=== PATIENT | male | born 1985 | race Caucasian/White ===

== ENCOUNTER 2024-05-14 08:56 | Outpatient (CLI) | payer BC, SELFPAY ==
--- OUTSIDE RECORDS SUMMARY | 2024-05-14 09:24 | XMS_ITS | Clinical Summary ---
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 Role Phone Unavailable Primary Care Provider Unavailabl e Allergies No known active allergies Medications No known medications Active Problems Problem Noted Date Diagnosed Date AMBAR (obstructive sleep apnea) 11/06/2016 Physical exam, annual (Adult) 06/04/2016 Apnea 06/04/2016 Dupuytren contracture 06/04/2016 Tinea versicolor 06/04/2016 Family History Medical History Relation Name Comments No Known Problems Father No Known Problems Mother Relation Name Status Comments Father Alive Mother Alive Social History Tobacco Use Types Packs/Day Years Used Date Smoking Tobacco: Never Smokeless Tobacco: Never Tobacco Cessation:Counseling Given: No Alcohol Use Standard Drinks/Week Comments Yes 0 (1 standard drink = 0.6 oz pur e alcohol) Sexually Active Control Partners Comments Not Currently Sex and Gender Information Value Date Recorded Sex Assigned at Not on file Legal Sex Male 12:00 AM CDT Gender Identity Not on file Sexual Orientation Not on file Last Filed Vital Signs Vital Sign Reading Time Taken Comments Blood Pressure 104/72 11/06/2016 11:28 AM CDT Pulse 66 11/06/2016 11:28 AM CDT Temperature 36.6 C (97.9 F) 11/06/2016 11:28 AM CDT Respiratory Rate 20 11/06/2016 11:28 AM CDT Oxygen Saturation 96% 11/06/2016 11:28 AM CDT Inhaled Oxygen Concentration - - Weight 127 kg (280 lb) 11/06/2016 11:28 AM CDT Height 185.4 cm (6' 1 ) 11/06/2016 11:28 AM CDT Body Mass Index 36.94 11/06/2016 11:28 AM CDT Plan of Treatment Health Maintenance Due Date Last Done Comments Hepatitis C Virus (HCV) Screening 1984 TdaP Immunization 1984 Hepatitis B Immunization (1 of 3 - 19+ 3-dose series) 02/18/2003 Influenza Immunization (#1) 2023 SARS-COV-2 Immunization (2023- season) 2023 Respiratory Syncytial Virus (RSV) Immunization (Adult) (1 - 1-dose 75+ series) 02/18/2059 Meningococcal Immunization (ACWY) Aged Out No longer eligible based on patient's age to complete this topic Pneumococcal Immunization Combined Aged Out No longer eligible based on patient's age to complete this topic Rotavirus Immunization Aged Out No lo nger eligible based on patient's age to complete this topic Insurance
--- OUTSIDE RECORDS SUMMARY | 2024-05-14 09:24 | XMS_ITS | Clinical Summary ---
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 Name Role Phone No, Physician Primary Care Provider [phone] Allergies No known active allergies Medications methylPREDNISol one (MEDROL, SARA,) 4 mg tablet take as directed 1 0 04/05/2015 Active Encounters Date Type Department Care Team Description 04/25/2024 6:10 PM TIRE CARE MANAGER - 04/25/2024 8:07 PM TIRE CARE MANAGER Emergency [facility] Emergency Department [address] [place] [address] Chest pain, unspecified type (Primary Dx); Elevated blood pressure reading Discharge Disposition: Discharge to home or self care from Last 3 Months Social History Tobacco Use Types Packs/Day Years Used Date Smoking Tobacco: Never Assessed Personal Safety Answer Date Recorded Have you ever been in or are you currently in a harmful physical or emotional relationship or is someone making you feel afraid or unsafe? Denies 04/25/2024 Sex and Gender Information Value Date Recorded Sex Assigned at Not on file Legal Sex Male 11:54 PM TIRE CARE MANAGER Gender Identity Not on file Sexual Orientation Not on file Last Filed Vital Signs Vital Sign Reading Time Taken Comments Blood Pressure 178/103 04/25/2024 7:45 PM TIRE CARE MANAGER Pulse 81 04/25/2024 7:45 PM TIRE CARE MANAGER Temperature 36.9 C (98.5 F) 04/25/2024 3:48 PM TIRE CARE MANAGER Respiratory Rate 21 04/25/2024 7:45 PM TIRE CARE MANAGER Oxygen Saturation 95% 04/25/2024 7:45 PM TIRE CARE MANAGER Inhaled Oxygen Concentration - - Weight 145.2 kg (320 lb) 04/25/2024 3:48 PM TIRE CARE MANAGER Height 185.4 cm (6' 1 ) 04/25/2024 3:48 PM TIRE CARE MANAGER Body Mass Index 42.22 04/25/2024 3:48 PM TIRE CARE MANAGER Plan of Treatment Health Maintenance Due Date Last Done Comments Depression Screening 1984 Hepatitis C Screening 1984 DTaP/Tdap/Td Vaccine (1 - Tdap) 02/18/1995 Varicella Vaccines (1 of 2 - 13+ 2-dose series) 02/18/1997 Hepatitis B Screening 02/18/2002 Regular Well Visit/Exam 18-64 02/18/2002 Influenza Vaccine (#1) 2023 HPV Vaccines Aged Out No longer eligi ble based on patient's age to complete this topic Pneumococcal vaccine <65 Aged Out No longer eligible based on patient's age to complete this topic Procedures Procedure Name Priority Date/Time Associated Diagnosis Comments CTA CHEST W CONTRAST ED 04/25/2024 7:15 PM TIRE CARE MANAGER TROPONIN T HIGH-SENSITIVITY 2-HOUR Timed 04/25/2024 6:25 PM TIRE CARE MANAGER XR CHEST PA LATERAL 2 VIEWS ED 04/25/2024 4:07 PM TIRE CARE MANAGER EGFR STAT 04/25/2024 4:03 PM TIRE CARE MANAGER DIFFERENTIAL AUTO STAT 04/25/2024 4:0 3 PM TIRE CARE MANAGER TROPONIN T HIGH-SENSITIVITY SERIES (BASELINE, 2HR, 4HR, 6HR) STAT 04/25/2024 4:03 PM TIRE CARE MANAGER COMPREHENSIVE METABOLIC PANEL STAT 04/25/2024 4:03 PM TIRE CARE MANAGER CBC WITH AUTO DIFFERENTIAL STAT 04/25/2024 4:03 PM TIRE CARE MANAGER ECG 12-LEAD STAT 04/25/2024 3:39 PM TIRE CARE MANAGER from Last 3 Months Results * CTA Chest W Contrast (04/25/2024 7:15 PM TIRE CARE MANAGER) Anatomical Region Laterality Modality Chest N/A Computed Tomogra phy 04/25/2024 7:31 PM TIRE CARE MANAGER Narrative 04/25/2024 7:35 PM TIRE CARE MANAGER EXAM DESCRIPTION: CTA CHEST W CONTRAST REASON FOR STUDY: Aortic aneurysm suspected Patient complains of mid to left chest pain x 1 month. TECHNIQUE: CTA scan of the chest performed without and with intravenous contrast using helical scanning technique with dynamic intravenous contrast injection. Precontrast and arterial phase images of the chest were acquired. Reconstructed coronal and sagittal MPR images reviewed. 3D MIP images rendered on scanning unit and reviewed at time of interpretation. All images stored on PACS. Automated exposure control was used as a dose optimization technique for this examination. CONTRAST TYPE/DOSE: 100mL of IOVERSOL 350 MG IODINE/ML INTRAVENOUS SYRINGE injected via intravenous COMPARISON: None REFERENCE: Per ACR white paper recommendations, unless otherwise specified no follow-up imaging is recommended for incidental renal and adrenal lesions per consensus recommendations based on imaging criteria. Further lab evaluation could be pursued based on clinical findings. FINDINGS: VASCULATURE: No dissection, aneurysm, intramural hematoma, rupture, or penetrating atherosclerotic ulcer. No large vessel occlusion. No CT evidence of pulmonary embolus. LUNGS: No nodules or masses. No pneumonia. PLEURA: No effusion. No pneumothorax. MEDIASTINUM/MARILEE: No identified masses or abnormal nodes. HEART: Heart size is normal with no pericardial effusion. AXILLA: No adenopathy. CHEST WALL: No masses. No subcutaneous air. HARDWARE/LINES/TUBES: None. UPPER ABDOMEN: Fatty infiltration of the liver. Right renal cysts. MUSCULOSKELETAL: No significant abnormality. OTHER: No other significant abnormality. IMPRESSION: No aortic aneurysm or dissection. No acute findings. THIS IS AN ELECTRONICALLY VERIFIED FINAL REPORT 04/25/2024 7:35 PM - Electronically signed by Hima Rivera M.D. KT: AMI Report ID: [id number] Reading Location: [id number] Procedure Note Hima Rivera MD - 04/25/2024 EXAM DESCRIPTION: CTA CHEST W CONTRAST REASON FOR STUDY: Aortic aneurysm suspected Patient complains of mid to left chest pain x 1 month. TECHNIQUE: CTA scan of the chest performed without and with intravenous contrast using helical scanning technique with dynamic intravenouscontrast injection. Precontrast and arterial phase images of the chest were acquired. Reconstructed coronal and sagittal MPR images reviewed.3D MIP images rendered on scanning unit and reviewed at time ofinterpretation. All images stored on PACS. Automated exposure control was used as a dose optimization technique for this examination. CONTRAST TYPE/DOSE: 100mL of IOVERSOL 350 MG IODINE/ML INTRAVENOUSSYRINGE injected via intravenous COMPARISON: None REFERENCE: Per ACR white paper recommendations, unless otherwise specifiedno follow-up imaging is recommended for incidental renal and adrenal lesionsper consensus recommendations based on imaging criteria. Further labevaluation could be pursued based on clinical findings. FINDINGS: VASCULATURE: No dissection, aneurysm, intramural hematoma, rupture, or penetrating atherosclerotic ulcer. No large vessel occlusion. No CT evidence of pulmonary embolus. LUNGS: No nodules or masses. No pneumonia. PLEURA: No effusion. No pneumothorax. MEDIASTINUM/MARILEE: No identified masses or abnormal nodes. HEART: Heart size is normal with no pericardial effusion. AXILLA: No adenopathy. CHEST WALL: No masses. No subcutaneous air. HARDWARE/LINES/TUBES: None. UPPER ABDOMEN: Fatty infiltration of the liver. Right renal cysts. MUSCULOSKELETAL: No significant abnormality. OTHER: No other significant abnormality. IMPRESSION: No aortic aneurysm or dissection. No acute findings. THIS IS AN ELECTRONICALLY VERIFIED FINAL REPORT 04/25/2024 7:35 PM - Electronically signed by Hima Rivera M.D. KT: AMI Report ID: [id number] Reading Location: [place] [address] PROCEDURES Final R esult * Troponin T high-sensitivity 2-hour (04/25/2024 6:25 PM TIRE CARE MANAGER) Trop T hs 10 <=22 ng/L Comment: Interpretive Data For further hscTnT resources including the diagnostic algorithm and an aid in interpretation, copy and paste this link: https://nrl.testcatalog.org/show/hsTrop Current Interpretive Data last revised 2020. Trop T hs delta 3 ng/L [facility] ([place]) Trop T hs interp Insignificant [facility] ([place]) Blood 04/25/2024 6:25 PM TIRE CARE MANAGER 04/25/2024 6:29 PM TIRE CARE MANAGER us Miguel Roper MD LAB BLOOD ORDERABLES Final R esult [facility] [place] [facility] Department [place] [address] * XR Chest PA Lateral 2 Views (04/25/2024 4:07 PM TIRE CARE MANAGER) Anatomical Region Laterality Modality Body, Chest N/A Computed Radiogr aphy 04/25/2024 4:23 PM TIRE CARE MANAGER Narrative 04/25/2024 4:24 PM TIRE CARE MANAGER EXAM DESCRIPTION: XR CHEST PA LATERAL 2 VIEWS REASON FOR STUDY: chest pain C/o substernal chest pain that started this AM when he woke up. Pt stated he feels it in his throat as well. Pt stated that he has had this pain intermittent over the last month. Former smoker TECHNIQUE: There are 2 radiographic view(s) of the chest. COMPARISON: No prior. FINDINGS: LUNGS: Pulmonary vascularity appears normal. No confluent infiltrate or effusion. Costophrenic angles are sharp. HEART/MEDIASTINUM: Tortuosity of the aorta. Otherwise, normal cardiomediastinal silhouette. LINES/TUBES: None. BONES: No acute osseous abnormality. IMPRESSION: No acute findings or infiltrate. Tortuosity of the aorta. THIS IS AN ELECTRONICALLY VERIFIED FINAL REPORT 04/25/2024 4:24 PM - Electronically signed by Amauri Lopes M.D. MJ: [email or web address] Report ID: [id number] Reading Location: [id number] Procedure Note Amauri Lopes MD - 04/25/2024 EXAM DESCRIPTION: XR CHEST PA LATERAL 2 VIEWS REASON FOR STUDY: chest pain C/o substernal chest pain that started this AM when he woke up. Ptstated he feels it in his throat as well. Pt stated that he has had this pain intermittent over the last month. Former smoker TECHNIQUE: There are 2 radiographic view(s) of the chest. COMPARISON: No prior. FINDINGS: LUNGS: Pulmonary vascularity appears normal. No confluent infiltrate or effusion. Costophrenic angles are sharp. HEART/MEDIASTINUM: Tortuosity of the aorta. Otherwise, normal cardiomediastinal silhouette. LINES/TUBES: None. BONES: No acute osseous abnormality. IMPRESSION: No acute findings or infiltrate. Tortuosity of the aorta. THIS IS AN ELECTRONICALLY VERIFIED FINAL REPORT 04/25/2024 4:24 PM - Electronically signed by Amauri Lopes M.D. MJ: [email or web address] Report ID: [id number] Reading Location: [id number] us Miguel Roper MD IMG XR PROCEDURES Final Resu lt * Troponin T high-sensitivity series (baseline, 2hr, 4hr, 6hr) (04/25/2024 4:03 PM TIRE CARE MANAGER) Pathologist [facility] [place] Trop T hs 7 <=22 ng/L Comment: Interpretive Data For further hscTnT resources including the diagnostic algorithm and an aid in interpretation, copy and paste this link: https://nrl.testcatalog.org/show/hsTrop Current Interpretive Data last revised 2020. Blood 04/25/2024 4:03 PM TIRE CARE MANAGER 04/25/2024 4:08 PM TIRE CARE MANAGER Miguel Roper MD LAB BLOOD ORDERABLES Final R esult [facility] [place] [facility] Department [place] [address] * eGFR (04/25/2024 4:03 PM TIRE CARE MANAGER) Pathologist [facility] [place] eGFR >90 >=60 mL/min/1. 73 m2 Comment: Interpretive Data Reference Interval Normal >/= 90 mL/min/1.73m2 Mildly decreased* 60 - 89 mL/min/1.73m2 Mildly to moderately decreased 45 - 59 mL/min/1.73m2 Moderately to severely decreased 30 - 44 mL/min/1.73m2 Severely decreased 15 - 29 mL/min/1.73m2 Kidney Failure < 15 mL/min/1.73m2 *Relative to young adult level Estimated glomerular filtration rate is determined by the 2020 CKD-EPI equation recommended by the National Kidney Foundation (A Unifying Approach to GFR Estimation: Recommendations of the NKF-ASK Task Force on Reassessing the Inclusion of Race in Diagnosing Kidney Disease, JASN 2020). The CKD-EPI equation should not be used for patients with unstable renal function and has not been validated in children and those over 70. Current interpretive data was last reviewed 2021. Blood 04/25/2024 4:03 PM TIRE CARE MANAGER 04/25/2024 4:08 PM TIRE CARE MANAGER us Miguel Roper MD LAB BLOOD ORDERABLES Final R esult [facility] ([place]) 1 [facility] Department [place] [address] * (ABNORMAL) Differential, auto (04/25/2024 4:03 PM TIRE CARE MANAGER) Neutrophil abs 4.2 1.5 - 6.5 K/cumm Imm gran abs 0.2(H) 0.0 - 0.1 K/cumm [facility] ([place]) Lymphocyte abs 2.3 0.8 - 3.3 K/cumm [facility] ([place]) Monocyte abs 0.6 0.2 - 0.8 K/cumm [facility] ([place]) Eosinophil abs 0.2 0.0 - 0.5 K/cumm [facility] ([place]) Basophil abs 0.1 0.0 - 0.1 K/cumm [facility] ([place]) Neutrophil pct 55.6 % [facility] ([place]) Comment: Interpretive Data Percent cell count reference ranges are not reported, since discordance with absolute values may lead to misinterpretation of CBC data. Current Interpretive Data was last revised on 2017. Imm gran pct 2.6 % [facility] ([place]) Comment: Interpretive Data Percent cell count reference ranges are not reported, since discordance with absolute values may lead to misinterpretation of CBC data. Current Interpretive Data was last revised on 2017. Lymphocyte pct 30.4 % [facility] ([place]) Comment: Interpretive Data Percent cell count reference ranges are not reported, since discordance with absolute values may lead to misinterpretation of CBC data. Current Interpretive Data was last revised on 2017. Monocyte pct 7.2 % [facility] ([place]) Comment: Interpretive Data Percent cell count reference ranges are not reported, since discordance with absolute values may lead to misinterpretation of CBC data. Current Interpretive Data was last revised on 2017. Eosinophil pct 2.9 % [facility] ([place]) Comment: Interpretive Data Percent cell count reference ranges are not reported, since discordance with absolute values may lead to misinterpretation of CBC data. Current Interpretive Data was last revised on 2017. Basophil pct 1.3 % [facility] ([place]) Comment: Interpretive Data Percent cell count reference ranges are not reported, since discordance with absolute values may lead to misinterpretation of CBC data. Current Interpretive Data was last revised on 2017. Blood 04/25/2024 4:03 PM TIRE CARE MANAGER 04/25/2024 4:08 PM TIRE CARE MANAGER us Miguel Roper MD LAB BLOOD ORDERABLES Final R esult [facility] ([place] 1 [facility] Department [place] [address] * (ABNORMAL) CBC with auto differential (04/25/2024 4:03 PM TIRE CARE MANAGER) WBC 7.6 3.8 - 9.9 K/cumm Hgb 15.3 13.0 - 17.5 g/dL [facility] ([place]) Hct 43.0 38.9 - 50.3 % [facility] ([place]) Plt 292 150 - 400 K/cumm [facility] ([place]) MPV 10.2 9.1 - 12.3 fL [facility] ([place]) RBC 5.30 4.30 - 5.80 M/cumm [facility] ([place]) MCV 81.1(L) 81.3 - 96.4 fL [facility] ([place]) MCH 28.9 27.1 - 33.3 pg [facility] ([place]) MCHC 35.6 32.3 - 35.7 g/dL [facility] ([place]) RDW CV 12.3 11.1 - 14.9 % [facility] ([place]) RDW SD 35.8 35.7 - 48.1 fL [facility] ([place]) NRBC abs 0.00 0.00 - 0.01 K/cumm [facility] ([place]) Blood Venous blood specimen / Unknown 04/25/2024 4:03 PM TIRE CARE MANAGER 04/25/2024 4:08 PM TIRE CARE MANAGER us Miguel Roper MD LAB BLOOD ORDERABLES Final R esult [facility] ([place] 1 [facility] Department [place] [address] * (ABNORMAL) Comprehensive metabolic panel (04/25/2024 4:03 PM TIRE CARE MANAGER) Sodium 138 135 - 145 mmol/L Potassium, pl 4.2 3.3 - 4.9 mmol/L [facility] ([place]) Chloride 104 97 - 110 mmol/L [facility] ([place]) CO2 20(L) 22 - 32 mmol/L [facility] ([place]) Anion gap 14 2 - 15 mmol/L [facility] ([place]) BUN 8 6 - 25 mg/dL [facility] ([place]) Creatinine 0.97 0.80 - 1.30 mg/dL [facility] ([place]) Glucose 172 70 - 199 mg/dL [facility] ([place]) Comment: Interpretive Data Fasting glucose >/= 126 mg/dl is diagnostic for diabetes. Fasting is defined as no caloric intake for at least 8 hours. Fasting glucose between 100 mg/dl to 125 mg/dl is diagnostic of prediabetes. In a patient with classic symptoms of hyperglycemia or hyperglycemic crisis, a random glucose >/= 200 mg/dl is diagnostic for diabetes. In the absence of unequivocal hyperglycemia, results should be confirmed by repeat testing. The classification and Diagnosis of Diabetes Diabetes Care 2021; 46: S19-S40. Current interpretive data was last revised 2022. Calcium 9.4 8.5 - 10.3 mg/dL [facility] ([place]) Bilirubin, total 0.7 0.1 - 1.2 mg/dL [facility] ([place]) Protein, pl 7.1 6.5 - 8.5 g/dL [facility] ([place]) Albumin 4.7 3.5 - 5.0 g/dL [facility] ([place]) Alk phos 64 40 - 130 Units/L [facility] ([place]) ALT 29 7 - 55 Units/L [facility] ([place]) AST 23 10 - 50 Units/L [facility] ([place]) Blood 04/25/2024 4:03 PM TIRE CARE MANAGER 04/25/2024 4:08 PM TIRE CARE MANAGER Miguel Roper MD LAB BLOOD ORDERABLES Final R esult Performing Organization Address [facility] de Phone Number [facility] ([place]) 1 [facility] [place] [address] * ECG 12 lead (04/25/2024 3:39 PM TIRE CARE MANAGER) 04/25/2024 3:39 PM TIRE CARE MANAGER Narrative [facility] - 04/26/2024 6:32 AM TIRE CARE MANAGER Vent Rate: 107 bpm RR Interval: 558 msec HI Interval: 180 msec QRS Duration: 80 msec QT Interval: 298 msec QTC Interval: 361 msec P-R-T [place]: 32 - -16 - 72 degrees IMPRESSION: SINUS TACHYCARDIA LEFT ATRIAL ENLARGEMENT [-0.15mV P-WAVE IN V1/V2] POSSIBLE RIGHT VENTRICULAR CONDUCTION DELAY [RSR (QR) IN V1/V2] SEPTAL MYOCARDIAL INFARCTION , PROBABLY OLD [40+ ms Q WAVE IN V1/V2] ABNORMAL ECG Electronically Signed By: Raymond Whittaker MD Miguel Roper MD ECG ORDERABLES Final Result Performing Organization Address [facility] de Phone Number [facility] [employer] [facility] from Last 3 Months Insurance [facility] Care Teams Box Strapper Relationship Specialty Start Date End Date No, Physician PCP - General 04/25/24
--- OUTSIDE RECORDS SUMMARY | 2024-05-14 09:24 | XMS_ITS | Referral Summary ---
Author Organization [facility] Address [address] [place] [address] Care Team Providers Care [facility] Name Role Phone No, Physician Primary Care Provider [phone] Encounters Date Type Department Care Team Description 04/25/2024 6:10 PM MASH PROCESSING OPERATOR - 04/25/2024 8:07 PM MASH PROCESSING OPERATOR Emergency [facility] [address] [place] [address] Chest pain, unspecified type (Primary Dx); Elevated blood pressure reading Discharge Disposition: Discharge to home or self care from Last 3 Months Allergies No known active allergies Medications methylPREDNISol one (MEDROL, SARA,) 4 mg tablet take as directed 1 0 04/05/2015 Active Social History Tobacco Use Types Packs/Day Years Used Date Smoking Tobacco: Never Assessed Personal Safety Answer Date Recorded Have you ever been in or are you currently in a harmful physical or emotional relationship or is someone making you feel afraid or unsafe? Denies 04/25/2024 Sex and Gender Information Value Date Recorded Sex Assigned at Not on file Legal Sex Male 11:54 PM MASH PROCESSING OPERATOR Gender Identity Not on file Sexual Orientation Not on file Last Filed Vital Signs Vital Sign Reading Time Taken Comments Blood Pressure 178/103 04/25/2024 7:45 PM MASH PROCESSING OPERATOR Pulse 81 04/25/2024 7:45 PM MASH PROCESSING OPERATOR Temperature 36.9 C (98.5 F) 04/25/2024 3:48 PM MASH PROCESSING OPERATOR Respiratory Rate 21 04/25/2024 7:45 PM MASH PROCESSING OPERATOR Oxygen Saturation 95% 04/25/2024 7:45 PM MASH PROCESSING OPERATOR Inhaled Oxygen Concentration - - Weight 145.2 kg (320 lb) 04/25/2024 3:48 PM MASH PROCESSING OPERATOR Height 185.4 cm (6' 1 ) 04/25/2024 3:48 PM MASH PROCESSING OPERATOR Body Mass Index 42.22 04/25/2024 3:48 PM MASH PROCESSING OPERATOR Plan of Treatment Not on file Procedures Procedure Name Priority Date/Time Associated Diagnosis Comments CTA CHEST W CONTRAST ED 04/25/2024 7:15 PM MASH PROCESSING OPERATOR TROPONIN T HIGH-SENSITIVITY 2-HOUR Timed 04/25/2024 6:25 PM MASH PROCESSING OPERATOR XR CHEST PA LATERAL 2 VIEWS ED 04/25/2024 4:07 PM MASH PROCESSING OPERATOR EGFR STAT 04/25/2024 4:03 PM MASH PROCESSING OPERATOR DIFFERENTIAL AUTO STAT 04/25/2024 4:0 3 PM MASH PROCESSING OPERATOR TROPONIN T HIGH-SENSITIVITY SERIES (BASELINE, 2HR, 4HR, 6HR) STAT 04/25/2024 4:03 PM MASH PROCESSING OPERATOR COMPREHENSIVE METABOLIC PANEL STAT 04/25/2024 4:03 PM MASH PROCESSING OPERATOR CBC WITH AUTO DIFFERENTIAL STAT 04/25/2024 4:03 PM MASH PROCESSING OPERATOR ECG 12-LEAD STAT 04/25/2024 3:39 PM MASH PROCESSING OPERATOR from Last 3 Months Results * CTA Chest W Contrast (04/25/2024 7:15 PM MASH PROCESSING OPERATOR) Anatomical Region Laterality Modality Chest N/A Computed Tomogra phy 04/25/2024 7:31 PM MASH PROCESSING OPERATOR Narrative 04/25/2024 7:35 PM MASH PROCESSING OPERATOR EXAM DESCRIPTION: CTA CHEST W CONTRAST REASON [...] Hima Rivera M.D. KT: AMI Report ID: [id number] Reading Location: [place] [address] Procedure Note Hima Rivera MD - 04/25/2024 [...] Electronically signed by Hima Rivera M.D. KT: KT Report ID: [id number] Reading Location: [place] [address] us Renetta ZAFAR IMG CT PROCEDURES Final R esult * Troponin T high-sensitivity 2-hour (04/25/2024 6:25 PM MASH PROCESSING OPERATOR) Trop T hs 10 <=22 ng/L Comment: Interpretive Data For further hscTnT resources including the diagnostic algorithm and an aid in interpretation, copy and paste this link: https://nrl.testcatalog.org/show/hsTrop Current Interpretive Data last revised 2020. Trop T hs delta 3 ng/L [facility] ([place]) Trop T hs interp Insignificant [facility] ([place]) Blood 04/25/2024 6:25 PM MASH PROCESSING OPERATOR 04/25/2024 6:29 PM MASH PROCESSING OPERATOR Miguel Roper MD LAB BLOOD ORDERABLES Final R esult [facility] ([place]) [address] [facility] [place] [address] * XR Chest PA Lateral 2 Views (04/25/2024 4:07 PM MASH PROCESSING OPERATOR) Anatomical Region Laterality Modality Body, Chest N/A Computed Radiogr aphy 04/25/2024 4:23 PM MASH PROCESSING OPERATOR Narrative 04/25/2024 4:24 PM MASH PROCESSING OPERATOR EXAM DESCRIPTION: XR CHEST PA LATERAL 2 [...] Amauri Lopes M.D. MJ: DOTTY Report ID: [id number] Reading Location: [id number] Procedure Note Amauri Lopes MD - 04/25/2024 [...] Amauri Lopes M.D. MJ: DOTTY Report ID: [id number] Reading Location: [id number] Miguel Roper MD IMG XR PROCEDURES Final Resu lt * Troponin T high-sensitivity series (baseline, 2hr, 4hr, 6hr) (04/25/2024 4:03 PM MASH PROCESSING OPERATOR) Trop T hs 7 <=22 ng/L Comment: Interpretive Data For further hscTnT resources including the diagnostic algorithm and an aid in interpretation, copy and paste this link: https://nrl.testcatalog.org/show/hsTrop Current Interpretive Data last revised 2020. Blood 04/25/2024 4:03 PM MASH PROCESSING OPERATOR 04/25/2024 4:08 PM MASH PROCESSING OPERATOR Miguel Roper MD LAB BLOOD ORDERABLES Final R esult [facility] [place] [address] [place] [address] [place] [address] * eGFR (04/25/2024 4:03 PM MASH PROCESSING OPERATOR) Pathologist [facility] eGFR >90 >=60 mL/min/1. 73 m2 Comment: [...] last reviewed 2021. Blood 04/25/2024 4:03 PM MASH PROCESSING OPERATOR 04/25/2024 4:08 PM MASH PROCESSING OPERATOR us Miguel Roper MD LAB BLOOD ORDERABLES Final R esult [facility] ([place]) [address] [facility] [place] [address] * (ABNORMAL) Differential, auto (04/25/2024 4:03 PM MASH PROCESSING OPERATOR) Neutrophil abs 4.2 1.5 - 6.5 K/cumm Imm gran abs 0.2(H) 0.0 - 0.1 K/cumm [facility] ([place]) Lymphocyte abs 2.3 0.8 - 3.3 K/cumm [facility] ([place]) Monocyte abs 0.6 0.2 - 0.8 K/cumm [facility] ([place]) Eosinophil abs 0.2 0.0 - 0.5 K/cumm [facility] ([place]) Basophil abs 0.1 0.0 - 0.1 K/cumm [facility] ([place]) Neutrophil pct 55.6 % [facility] ([place]) Comment: Interpretive Data Percent cell count reference ranges are not reported, since discordance with absolute values may lead to misinterpretation of CBC data. Current Interpretive Data was last revised on 2017. Imm gran pct 2.6 % [facility] ([place]) Comment: Interpretive Data Percent [...] revised on 2017. Monocyte pct 7.2 % [facility] ([place]) Comment: Interpretive Data Percent [...] revised on 2017. Basophil pct 1.3 % [facility] ([place]) Comment: Interpretive Data Percent cell count reference ranges are not reported, since discordance with absolute values may lead to misinterpretation of CBC data. Current Interpretive Data was last revised on 2017. Blood 04/25/2024 4:03 PM MASH PROCESSING OPERATOR 04/25/2024 4:08 PM MASH PROCESSING OPERATOR Miguel Roper MD LAB BLOOD ORDERABLES Final R esult [facility] ([place]) [address] [facility] [place] [address] * (ABNORMAL) CBC with auto differential (04/25/2024 4:03 PM MASH PROCESSING OPERATOR) WBC 7.6 3.8 - 9.9 K/cumm Hgb 15.3 13.0 - 17.5 g/dL [facility] ([place]) Hct 43.0 38.9 - 50.3 % [facility] ([place]) Plt 292 150 - 400 K/cumm [facility] ([place]) MPV 10.2 9.1 - 12.3 fL [facility] ([place]) RBC 5.30 4.30 - 5.80 M/cumm [facility] ([place]) MCV 81.1(L) 81.3 - 96.4 fL [facility] ([place]) MCH 28.9 27.1 - 33.3 pg [facility] ([place]) MCHC 35.6 32.3 - 35.7 g/dL [facility] ([place]) RDW CV 12.3 11.1 - 14.9 % [facility] ([place]) RDW SD 35.8 35.7 - 48.1 fL [facility] ([place]) NRBC abs 0.00 0.00 - 0.01 K/cumm [facility] ([place]) Blood Venous blood specimen / Unknown 04/25/2024 4:03 PM MASH PROCESSING OPERATOR 04/25/2024 4:08 PM MASH PROCESSING OPERATOR us Miguel Roper MD LAB BLOOD ORDERABLES Final R esult [facility] ([place]) [address] [facility] [place] [address] * (ABNORMAL) Comprehensive metabolic panel (04/25/2024 4:03 PM MASH PROCESSING OPERATOR) Sodium 138 135 - 145 mmol/L Potassium, pl 4.2 3.3 - 4.9 mmol/L [facility] Chloride 104 97 - 110 mmol/L [facility] ([place]) CO2 20(L) 22 - 32 mmol/L [facility] Anion gap 14 2 - 15 mmol/L [facility] ([place]) BUN 8 6 - 25 mg/dL [facility] ([place]) Creatinine 0.97 0.80 - 1.30 mg/dL [facility] ([place]) Glucose 172 70 - 199 mg/dL [facility] ([place]) Comment: Interpretive Data Fasting glucose [...] classification and Diagnosis of Diabetes Diabetes Care 202; 46: S19-S40. Current interpretive data was last [...] [facility] ([place]) Blood 04/25/2024 4:03 PM MASH PROCESSING OPERATOR 04/25/2024 4:08 PM MASH PROCESSING OPERATOR Miguel Roper MD LAB BLOOD ORDERABLES Final R esult Performing Organization Address [facility] Co de Phone Number [facility] ([place]) [address] [facility] [place] [address] * ECG 12 lead (04/25/2024 3:39 PM MASH PROCESSING OPERATOR) 04/25/2024 3:39 PM MASH PROCESSING OPERATOR Narrative [facility] - 04/26/2024 6:32 AM MASH PROCESSING OPERATOR Vent Rate: 107 bpm RR Interval: 558 msec AL Interval: 180 msec QRS Duration: 80 msec QT Interval: 298 msec QTC Interval: 361 msec P-R-T [place]: 32 - -16 - 72 degrees IMPRESSION: SINUS TACHYCARDIA LEFT ATRIAL ENLARGEMENT [-0.15mV P-WAVE IN V1/V2] POSSIBLE RIGHT VENTRICULAR CONDUCTION DELAY [RSR (QR) IN V1/V2] SEPTAL MYOCARDIAL INFARCTION , PROBABLY OLD [40+ ms Q WAVE IN V1/V2] ABNORMAL ECG Electronically Signed By: Raymond Whittaker MD Miguel Roper MD ECG ORDERABLES Final Result Performing Organization Address [facility] Co de Phone Number [facility] [employer] [facility] from Last 3 Months Insurance [facility] Care Teams Home Health L[facility] Relationship Specialty Start Date End Date No, Physician PCP - General 04/25/24
[2024-05-14 09:29] LABS: Basophils Absolute Auto 0.07 K/mm3 (0.00-0.10); Basophils Percent Auto 1.1 % (0.0-1.0); Eosinophils Absolute Auto 0.21 K/mm3 (0.02-0.50); Eosinophils Percent Auto 3.4 % (1.0-6.0); Hematocrit 42.3 % (40.0-54.0); Hemoglobin 14.4 g/dL (14.0-18.0); Immature Granulocyte Absolute 0.05 K/mm3 (0.00-0.00); Immature Granulocyte Percent A 0.8 % (0.0-0.0); Lymphocytes Absolute Auto 2.54 K/mm3 (1.10-4.50); Lymphocytes Percent Auto 41.6 % (18.0-42.0); Mean Corpuscular Hemoglobin 28.4 pg (27.0-31.0); Mean Corpuscular Volume 83.4 fL (78.0-102.0); Mean Platelet Volume 10.1 fl (8.7-11.0); Monocytes Absolute Auto 0.51 K/mm3 (0.10-0.90); Monocytes Percent Auto 8.4 % (2.0-11.0); Neutrophils Absolute Auto 2.72 K/mm3 (1.70-7.20); Neutrophils Percent Auto 44.7 % (50.0-70.0); Platelet Count Result 249 K/mm3 (150-420); Red Blood Count 5.07 M/mm3 (4.70-6.10); Red Cell Distribution Width 12.6 % (11.6-14.4); White Blood Count 6.1 K/mm3 (4.8-10.8)
[2024-05-14 09:58] LABS: Alanine Aminotransferase 31 U/L (16-63); Albumin Level 4.2 g/dL (3.4-5.0); Alkaline Phosphatase 74 U/L (46-116); Anion Gap 11 mmol/L (4-12); Aspartate Amino Transferase 14 U/L (15-37); Blood Urea Nitrogen 14 mg/dL (7-18); Carbon Dioxide 26 mmol/L (21-32); Chloride 105 mmol/L (98-108); Cholesterol 197 mg/dL (0-200); Estimated Glomerular Filt Rate > 60; Glucose 162 mg/dL (70-99); HDL Direct 34 mg/dL (40-60); LDL Cholesterol Calculated 119 mg/dL (<130); Osmolality Calculated 298 mOsm/kg (285-295); Potassium 4.4 mmol/L (3.5-5.1); Sodium 142 mmol/L (136-145); Triglycerides 218 mg/dL (0-150)
[2024-05-14 11:03] LABS: Thyroid Stimulating Hormone Reflex 2.08 u/IU/mL (0.36-3.74)
[2024-05-14 11:14] LABS: Hemoglobin A1C 6.3 % (<5.7)
== END 2024-05-14 08:57 | disposition home or self-care (01) ==
LOC: CHSLAB 08:58
PROVIDERS: PCP Family Medicine; Visit Provider Family Medicine
DX: I10 Essential (primary) hypertension (principal); E03.9 Hypothyroidism, unspecified; E11.9 Type 2 diabetes mellitus without complications
CPT/HCPCS: 36415; 80053; 80061; 83036; 84443; 85025